=== PATIENT | female | born 1935 | race African-American/Black ===

== ENCOUNTER 2018-08-20 10:17 | Inpatient (IN) | payer OTHER, MEDICARE ==
[2018-08-20] MEDS ORDERED: ONDANSETRON 4 MG/2 ML VIAL IVPB ONE (11:20)
[2018-08-20] MEDS ORDERED: ONDANSETRON 4 MG/2 ML VIAL ONE (11:25)
--- NOTE | 2018-08-20 11:26 | PDOC ---
Attending Attestation - Resident Resident Name: Oumou Talbot - ED Attending Attestation I have performed the following: I have examined & evaluated the patient, The case was reviewed & discussed with the resident, I agree w/resident's findings & plan, Exceptions are as noted - HPI HPI: 08/20/18 11:21 83 F with h/o HTN, multiple abdominal surgeries (hysterectomy, partial colectomy s/p colostomy), SBOs, presenting with abdominal distention, pain, and nausea. Pt states that her symptoms started this morning. She noticed her abdomen becoming very bloated. Pt endorses nausea and having the urge to vomit but has not vomited. States that the pain comes in waves and is very severe, causing her to be SOB when it occurs. Pt states that her stool output from her colostomy has been less than normal. She states she has had prior obstructions in the past and gave herself an enema this morning in an attempt to clear it out. Denies F/C. Denies CP/SOB currently. - Physicial Exam PE: 08/20/18 11:25 "GENERAL: Awake, alert, and fully oriented, in no acute distress. HEAD: No signs of trauma EYES: PERRLA, EOMI, sclera anicteric, conjunctiva clear ENT: Auricles normal inspection, hearing grossly normal, nares patent, oropharynx clear without exudates. Moist mucosa NECK: Nontender, no stepoffs, Normal ROM, supple, no lymphadenopathy, JVD, or masses LUNGS: Breath sounds equal, clear to auscultation bilaterally. No wheezes, and no crackles HEART: Regular rate and rhythm, normal S1 and S2, no murmurs, rubs or gallops ABDOMEN: + abdominal distention and tympany, colostomy in place with scant stool in bag, diffuse TTP EXTREMITIES: Normal range of motion, no edema. No clubbing or cyanosis. No cords, erythema, or tenderness NEUROLOGICAL: Cranial nerves II through XII intact. 5/5 strength and sensation in all extremities, Normal speech, normal gait, normal cerebellar function SKIN: Warm, Dry, normal turgor, no rashes or lesions noted. - Medical Decision Making 08/20/18 11:25 83 F with multiple abdominal surgeries presenting with abdominal pain, distention, nausea. Likely SBO. - Labs - CTAP - Zofran 08/20/18 14:47 Labs wnl CTAP shows high grade partial SBO Will consult surgery
--- NOTE | 2018-08-20 11:44 | PDOC ---
History of Present Illness - General Chief Complaint: Pain Stated Complaint: ABD PAIN Time Seen by Provider: 08/20/18 11:09 - History of Present Illness Initial Comments: 83yo F with PMH of colostomy, HTN, CHF, Asthma presenting with abdominal pain starting this morning. Patient states she feels "blocked" as the usual contents are not draining from her colostomy. Patient complains of nausea, but she has not been able to vomit anything up though she wants to. She endorses intermittent abdominal pain in a bandlike distribution across the epigastrium. Previous abdominal surgeries include hysterectomy, colectomy in 2004, and revision. Patient has felt "blocked" before, but it was managed medically without surgery. Per chart review, she had a partial SBO in 2014 at this hospital. No urinary symptoms. Last ate some ham this morning. Denies fevers, but endorses chills. PCP: Dr. Sarmiento Colorectal Surgeon: Dr. Angulo (not at this hospital) Past History - Past Medical History Allergies/Adverse Reactions: Allergies Allergy/AdvReac Type Severity Reaction Status Date / Time No Known Allergies Allergy Verified 08/20/18 10:47 Home Medications: Ambulatory Orders Aspirin [ASA -] 81 mg PO DAILY 12/27/11 Hctz 25Mg/Triamterene [Dyazide 25/37.5 -] 1 cap PO DAILY 12/27/11 Metoprolol Tartrate [Lopressor -] 25 mg PO BID 12/27/11 Potassium Chloride 10 meq PO BID 12/27/11 Mag Hydrox/Al Hydrox/Simeth [MAALOX *SUSPENSION* -] 30 ml PO Q6H PRN #0 oral.susp 12/29/11 Asthma: Yes CHF: Yes Diabetes: No GI Disorders: Yes (CROHNS DISEASE) HTN: Yes Hypercholesterolemia: Yes - Surgical History Abdominal Surgery: Yes (COLOSTOMY BA) - Suicide/Smoking/Psychosocial Hx Smoking Status: No Smoking History: Unknown if ever smoked Number of Cigarettes Smoked Daily: 0 Hx Alcohol Use: No Drug/Substance Use Hx: No Substance Use Type: None Hx Substance Use Treatment: No Review of Systems - Review of Systems Comments:: Constitutional: no fever, +chills HEENT: no throat pain, no dysphagia Cardiovascular: no chest pain, no palpitations Respiratory: no cough, no shortness of breath Gastrointestinal: +abdominal pain, +nausea Genitourinary: no dysuria, no frequency Musculoskeletal: no myalgia, no arthralgia Skin: no rash, no itching Neurologic: no headache, no weakness *Physical Exam - Vital Signs Last Vital Signs Temp Pulse Resp BP Pulse Ox 97.6 F 62 16 161/83 100 08/20/18 10:20 08/20/18 10:20 08/20/18 10:20 08/20/18 10:20 08/20/18 10:20 - Physical Exam Comments: General: Awake, alert, and fully oriented, in no acute distress Head: No signs of trauma Eyes: EOMI, sclera anicteric ENT: Moist mucus membranes Neck: Normal ROM, supple Lungs: Lungs clear, Normal breath sounds Cardio: Regular rhythm, S1 and S2 present Abdomen: Distended, significant hernias present. Tender to palpation overlying epigastrium, RUQ, LUQ. No guarding, no rebound. Extremities: Normal range of motion, Distal pulses present SKIN: Warm, Dry, normal turgor Neurologic: Cranial nerves II through XII grossly intact. Normal speech ED Treatment Course - LABORATORY CBC & Chemistry Diagram: 08/20/18 11:30 08/20/18 11:40 Medical Decision Making - Medical Decision Making 83yo F with PMH of colostomy, HTN, CHF, Asthma presenting with abdominal pain. DDX including but not limited to SBO, pancreatitis, gastritis, gastroenteritis, ischemic bowel Patient declining pain medication or antiemetics High suspicion for SBO given patient's surgical history and prior partial SBO. Pain is not out of proportion to exam, so low suspicion for ischemic bowel. 08/20/18 11:44 Patient with concerns for contrast dye during imaging as she believes she has had an adverse reaction previously. 08/20/18 13:27 CBC WBC 8.0 K/mm3 (4.0-10.0) 08/20/18 11:30 RBC 5.16 M/mm3 (3.60-5.2) 08/20/18 11:30 Hgb 14.6 GM/dL (10.7-15.3) 08/20/18 11:30 Hct 44.1 % (32.4-45.2) 08/20/18 11:30 MCV 85.5 fl (80-96) 08/20/18 11:30 MCH 28.3 pg (25.7-33.7) 08/20/18 11:30 MCHC 33.1 g/dl (32.0-36.0) 08/20/18 11:30 RDW 15.0 % (11.6-15.6) 08/20/18 11:30 Plt Count 177 K/MM3 (134-434) 08/20/18 11:30 MPV 8.1 fl (7.5-11.1) 08/20/18 11:30 Absolute Neuts (auto) 5.9 K/mm3 (1.5-8.0) 08/20/18 11:30 Neutrophils % 73.6 % (42.8-82.8) 08/20/18 11:30 Lymphocytes % 17.9 % (8-40) 08/20/18 11:30 Monocytes % 6.8 % (3.8-10.2) 08/20/18 11:30 Eosinophils % 1.1 % (0-4.5) D 08/20/18 11:30 Basophils % 0.6 % (0-2.0) 08/20/18 11:30 Nucleated RBC % 0 % (0-0) 08/20/18 11:30 No anemia or leukocytosis CMP Sodium 138 mmol/L (136-145) 08/20/18 11:40 Potassium 4.6 mmol/L (3.5-5.1) 08/20/18 11:40 Chloride 100 mmol/L (98-107) 08/20/18 11:40 Carbon Dioxide 32 mmol/L (21-32) 08/20/18 11:40 Anion Gap 6 MMOL/L (8-16) L 08/20/18 11:40 BUN 13 mg/dL (7-18) 08/20/18 11:40 Creatinine 0.6 mg/dL (0.55-1.3) 08/20/18 11:40 Creat Clearance w eGFR 95.47 (>60) 08/20/18 11:40 Random Glucose 118 mg/dL (74-106) H 08/20/18 11:40 Lactic Acid 1.6 mmol/L (0.4-2.0) 08/20/18 11:30 Calcium 10.2 mg/dL (8.5-10.1) H 08/20/18 11:40 Total Bilirubin 0.6 mg/dL (0.2-1) 08/20/18 11:40 AST 43 U/L (15-37) H 08/20/18 11:40 ALT 33 U/L (13-61) 08/20/18 11:40 Alkaline Phosphatase 65 U/L (45-117) 08/20/18 11:40 Total Protein 8.4 g/dl (6.4-8.2) H 08/20/18 11:40 Albumin 4.1 g/dl (3.4-5.0) 08/20/18 11:40 Lipase 152 U/L (73-393) 08/20/18 11:40 Electrolytes unremarkable Lipase WNL Mildly elevated AST at 43 Son, Noah Mcpherson, can be reached at [phone] 08/20/18 14:18 CTAP: "The study is limited without the use of any contrast material. There are mild atelectatic changes at both lung bases. The heart is enlarged. The patient is S/ P left colon resection with a colostomy within the left lower quadrant and a Amador's pouch within the pelvis. Clinical correlation as to the nature of the surgical procedure is recommended. This finding was present on a previous exam of 12/27/2011. There are ventral hernias within both the right and left lower and anterior abdominal manzano. The left-sided hernia is related to the colostomy stoma. There are moderately distended fluid-filled loops of small bowel throughout the abdomen and pelvis consistent with a partial SBO. The etiology of the obstruction is uncertain and may be related to the hernia is. Air and stool is noted within a nondistended colon. A moderate degree of diverticulosis is also noted throughout the colon. The liver, spleen, pancreas, adrenal glands and kidneys demonstrate no significant abnormalities. Gallbladder is clear. There is no evidence of intra-abdominal or retroperitoneal lymphadenopathy or fluid collections. Examination of the pelvis demonstrates no evidence of pelvic masses, fluid collections or lymphadenopathy. The uterus has been removed. There is no evidence of acute bony pathology. IMPRESSION: 1. S/P left colon resection with left lower quadrant colostomy and Amador's pouch. 2. Large ventral hernia is within the right and left lower abdomen. 3. High-grade partial SBO. Clinical correlation and follow-up recommended. Please see above discussion. " Call to office of patient's colorectal surgeon, Dr. Angulo, He is not present at the office, but his surgical PA is available Notified TINA Caldwell of patient's high-grade partial SBO Will page on-call surgery team 08/20/18 15:02 Plan to administer pain medication. Plan to insert NG tube 08/20/18 15:[address] Barajas who agrees with plan for admission and NG tube placement. 4mg morphine ordered 08/20/18 15:27 Explained benefits/risks of NG tube placement and patient voiced understanding. Patient declined NG tube until she gets a room upstairs. 08/20/18 16:[address] Sarmiento who accepted patient for admission 08/20/18 16:22 Per Nurse Roberts, patient declined morphine. 08/20/18 16:40 Patient reports that her colostomy bag is full and she no longer feels "blocked " Abdomen appears less distended 08/20/18 18:35 *DC/Admit/Observation/Transfer Diagnosis at time of Disposition: SBO (small bowel obstruction) - Discharge Dispostion Condition at time of disposition: Guarded Decision to Admit order: Yes - Referrals - Patient Instructions - Post Discharge Activity
[2018-08-20 12:30] LABS: BASO % 0.6 % (0-2.0); EOS % 1.1 % (0-4.5); HEMATOCRIT 44.1 % (32.4-45.2); HEMOGLOBIN 14.6 GM/dL (10.7-15.3); LYMPH % 17.9 % (8-40); MCH 28.3 pg (25.7-33.7); MCHC 33.1 g/dl (32.0-36.0); MEAN CELL VOLUME 85.5 fl (80-96); MEAN PLT VOLUME 8.1 fl (7.5-11.1); MONO % 6.8 % (3.8-10.2); NEUT % 73.6 % (42.8-82.8); PLATELET COUNT 177 K/MM3 (134-434); RBC 5.16 M/mm3 (3.60-5.2)
--- NOTE | 2018-08-20 12:35 | EKG ---
Test Reason : Blood Pressure : / mmHG Vent. Rate : 059 BPM Atrial Rate : 059 BPM P-R Int : 164 ms QRS Dur : 088 ms QT Int : 380 ms P-R-T Axes : 042 -31 029 degrees QTc Int : 376 ms POOR DATA QUALITY, INTERPRETATION MAY BE ADVERSELY AFFECTED SINUS BRADYCARDIA WITH SINUS ARRHYTHMIA POSSIBLE LEFT ATRIAL ENLARGEMENT LEFT AXIS DEVIATION LEFT VENTRICULAR HYPERTROPHY NONSPECIFIC T WAVE ABNORMALITY T WAVE ABNORMALITY, CONSIDER ANTEROLATERAL ISCHEMIA ABNORMAL ECG Confirmed by MD EZIO, MARKEL ([id number]) on 08/20/2018 12:35:07 PM Referred By: Confirmed By:MARKEL HOLGUIN MD
[2018-08-20 12:51] LABS: INR 0.97 (0.83-1.09); PROTHROMBIN TIME (PATIENT) 11.5 SEC (9.7-13.0)
[2018-08-20 12:54] LABS: ACTIVATED PTT 23.1 SECONDS (25.2-36.5)
[2018-08-20 13:16] LABS: ALBUMIN 4.1 g/dl (3.4-5.0); ALK PHOS 65 U/L (45-117); ANION GAP 6 MMOL/L (8-16); BILIRUBIN,TOTAL 0.6 mg/dL (0.2-1); BLOOD UREA NITROGEN 13 mg/dL (7-18); CALCIUM 10.2 mg/dL (8.5-10.1); CHLORIDE 100 mmol/L (98-107); CO2 32 mmol/L (21-32); CREATININE 0.6 mg/dL (0.55-1.3); GLUCOSE,RANDOM 118 mg/dL (74-106); LIPASE 152 U/L (73-393); POTASSIUM 4.6 mmol/L (3.5-5.1); SGOT/AST 43 U/L (15-37); SGPT/ALT 33 U/L (13-61); SODIUM 138 mmol/L (136-145); TOT PROT 8.4 g/dl (6.4-8.2)
[2018-08-20] MEDS ORDERED: morphine CARPU-JECT 4 MG/1 ML DISP.SYRIN IVPUSH ONE (15:28)
[2018-08-20] MEDS ORDERED: SODIUM CHLORIDE 1,000 ML IV SCH (15:30)
[2018-08-20] MEDS ORDERED: morphine SULFATE 4 MG/ML VIAL ONE (16:16)
--- NOTE | 2018-08-20 16:45 | CONSULT ---
- Consultation REQUESTING PROVIDER: CONSULT REQUEST: We have been asked to surgically evaluate this patient for abdominal pain. PCP: HISTORY OF PRESENT ILLNESS: The patient is a 83 yo female who presented today for abd pain with nausea. The patient states that she gives herself an enema every Sunday. This Sunday she gave herself her usual enema and had a bowel movement. She had some abd pain and decided to do another enema yesterday morning and had a small BM. She continued to have crampy abd pain with nausea so she came to the ER for evaluation. Currently her pain is better and not having nausea. Her symptoms of nausea happen when she is having her abd pain. The patient wishes to wait for NGT insertion until she is admitted to a room. I was at the bedside with her and the ER physician when she asked to wait. IT was explained to her that it is feasible to have the tube placed while in the ER and awaiting admission. PMHx: CHF, lower ext varicosities PSHx: abdominal hysterectomy, exp lap with colosotomy Home Medications Medication Instructions Recorded Aspirin [ASA -] 81 mg PO DAILY 12/27/11 Hctz 25Mg/Triamterene [Dyazide 1 cap PO DAILY 12/27/11 25/37.5 -] Metoprolol Tartrate [Lopressor -] 25 mg PO BID 12/27/11 Potassium Chloride 10 meq PO BID 12/27/11 Mag Hydrox/Al Hydrox/Simeth 30 ml PO Q6H PRN #0 oral.susp 12/29/11 [MAALOX *SUSPENSION* -] Allergies Allergy/AdvReac Type Severity Reaction Status Date / Time No Known Allergies Allergy Verified 08/20/18 10:47 REVIEW OF SYSTEMS: CONSTITUTIONAL: Absent: fever, chills CARDIOVASCULAR: Present: pain radiating up from abd RESPIRATORY: Present: SOB when having abdominal pain NTESTINAL: Present: abdominal pain, abdominal distension, nausea, vomiting, constipation GENITOURINARY: Absent: dysuria, hematuria, flank pain MUSCULOSKELETAL: Present: knee pain HEMATOLOGIC/IMMUNOLOGIC: Absent: easy bleeding, easy bruising PHYSICAL EXAM: GENERAL: Awake, alert, and fully oriented, in no acute distress. LUNGS: Clear to auscultation bilat anteriorly. No wheezes, and no crackles. HEART: Regular rate and rhythm. ABDOMEN: Soft, nontender, large lower quadrant hernia with viable colostomy in the LLQ. Mild tenderness to RLQ. No erythema to skin. Ostomy viable, digital exam/ostomy appears to be open. No gross blood or stool with exam. LOWER EXTREMITIES: 2+ pulses, warm, well-perfused. No calf tenderness. No peripheral edema. 5/5 dorsi/plantar flexion. RLE varicosities > left PSYCH: Cooperative. Good eye contact. Appropriate mood and affect. Vital Signs Temperature 97.6 F 08/20/18 10:20 Pulse Rate 62 08/20/18 10:20 Respiratory Rate 16 08/20/18 10:20 Blood Pressure 161/83 08/20/18 10:20 O2 Sat by Pulse Oximetry (%) 97 08/20/18 12:00 Lab Results WBC 8.0 K/mm3 (4.0-10.0) 08/20/18 11:30 RBC 5.16 M/mm3 (3.60-5.2) 08/20/18 11:30 Hgb 14.6 GM/dL (10.7-15.3) 08/20/18 11:30 Hct 44.1 % (32.4-45.2) 08/20/18 11:30 MCV 85.5 fl (80-96) 08/20/18 11:30 MCHC 33.1 g/dl (32.0-36.0) 08/20/18 11:30 RDW 15.0 % (11.6-15.6) 08/20/18 11:30 Plt Count 177 K/MM3 (134-434) 08/20/18 11:30 Sodium 138 mmol/L (136-145) 08/20/18 11:40 Potassium 4.6 mmol/L (3.5-5.1) 08/20/18 11:40 Chloride 100 mmol/L (98-107) 08/20/18 11:40 Carbon Dioxide 32 mmol/L (21-32) 08/20/18 11:40 Anion Gap 6 MMOL/L (8-16) L 08/20/18 11:40 BUN 13 mg/dL (7-18) 08/20/18 11:40 Creatinine 0.6 mg/dL (0.55-1.3) 08/20/18 11:40 Random Glucose 118 mg/dL (74-106) H 08/20/18 11:40 Calcium 10.2 mg/dL (8.5-10.1) H 08/20/18 11:40 Blood Type A POSITIVE 08/20/18 11:30 Antibody Screen Negative 08/20/18 11:30 INR 0.97 (0.83-1.09) 08/20/18 11:30 Laboratory Tests 08/20/18 11:[address] scan: bilateral lower abdomen hernia with colostomy. PSBO Problem List - Problems (1) SBO (small bowel obstruction) Assessment/Plan: Pt D/w Dr. Barajas, recommend npo/iv hydration and NGT decompression. The risks and benefits were explained to her and she wishes to decline ngt placment until after admission. Pt with mild RLQ pain and no evidence of acute incarceration Surgery to follow the patient, Abd xray placed for the am. GI consult Code(s): K56.609 - UNSP INTESTNL OBST, UNSP TO PARTIAL VERSUS COMPLETE OBST
[2018-08-20 21:25] VITALS: BMI 28.8
[2018-08-20] MEDS ORDERED: D5-1/2NS+10 MEQ KCL - 10 MEQ/1,000 ML INFUS.BAG IV SCH (21:45)
[2018-08-21 06:48] LABS: ALBUMIN 3.1 g/dl (3.4-5.0); ALK PHOS 53 U/L (45-117); AMYLASE 37 U/L (25-115); ANION GAP 7 MMOL/L (8-16); BILIRUBIN,TOTAL 0.8 mg/dL (0.2-1); BLOOD UREA NITROGEN 9 mg/dL (7-18); CALCIUM 8.5 mg/dL (8.5-10.1); CHLORIDE 105 mmol/L (98-107); CO2 26 mmol/L (21-32); CREATININE 0.4 mg/dL (0.55-1.3); GLUCOSE,RANDOM 96 mg/dL (74-106); POTASSIUM 3.8 mmol/L (3.5-5.1); SGOT/AST 27 U/L (15-37); SGPT/ALT 24 U/L (13-61); SODIUM 138 mmol/L (136-145); TOT PROT 6.7 g/dl (6.4-8.2)
[2018-08-21 07:04] LABS: BASO % 0.2 % (0-2.0); EOS % 4.4 % (0-4.5); HEMATOCRIT 37.8 % (32.4-45.2); HEMOGLOBIN 12.4 GM/dL (10.7-15.3); LYMPH % 51.1 % (8-40); MCH 27.9 pg (25.7-33.7); MCHC 32.7 g/dl (32.0-36.0); MEAN CELL VOLUME 85.4 fl (80-96); MEAN PLT VOLUME 8.3 fl (7.5-11.1); MONO % 12.5 % (3.8-10.2); NEUT % 31.8 % (42.8-82.8); PLATELET COUNT 163 K/MM3 (134-434); RBC 4.43 M/mm3 (3.60-5.2); RDW 14.7 % (11.6-15.6); WHITE BLOOD COUNT 3.6 K/mm3 (4.0-10.0)
[2018-08-21] MEDS ORDERED: MAG HYDROX/AL HYDROX/SIMETH -MYLANTA- ORAL SUSPENSION PO PRN (07:42)
[2018-08-21] MEDS: POTASSIUM CHLORIDE TABS 10 MEQ TABLET.ER (FP) PO SCH ×2 (09:01→22:53)
[2018-08-21] MEDS: METOPROLOL TARTRATE 25 MG TABLET (FP) PO SCH ×2 (09:01→22:54)
[2018-08-21] MEDS: TRIAMTERENE AND HCTZ - 37.5 MG/25 MG CAPSULE PO SCH ×3 (09:01→15:13)
[2018-08-21] MEDS: ASPIRIN 81 MG CHEWABLE TABLETS PO SCH (09:01)
--- NOTE | 2018-08-21 09:36 | PN ---
Progress Note (short form) - Note Progress Note: 83yo F s/p colostomy with large ventral hernia, admitted for SBO. Pt state that she feels much better today, that pain is completely resolved. Pt denies n /v, fever, chills. Pt states that she is passing gas through her ostomy and cleaned stool out of it this morning. Pt states that she is hungry and wants to eat. Last Vital Signs Temp Pulse Resp BP Pulse Ox 98.1 F 71 18 161/85 96 08/21/18 06:00 08/21/18 06:00 08/21/18 06:00 08/21/18 06:00 08/20/18 19:30 CBC, BMP 08/21/18 05:30 08/21/18 05:30 PE: Gen; A&O x3 Resp: breathing comfortably Abd: soft, nondistended, nontender, large ventral hernia in lower abd. Colostomy shows gas in bag. Problem List - Problems (1) SBO (small bowel obstruction) Assessment/Plan: Plan -pt appears to have opened up, will start on clears -f/up abd xray -will adv as tolerated, pt is anxious to go home. Code(s): K56.609 - UNSP INTESTNL OBST, UNSP TO PARTIAL VERSUS COMPLETE OBST
--- NOTE | 2018-08-21 09:44 | HP ---
DATE OF ADMISSION: 08/20/2018 DATE OF DICTATION: 08/21/2018 HISTORY OF PRESENT ILLNESS: This is an 83-year-old female who had colon cancer, left colectomy done 14 years ago, with a colostomy bag, also known to have hypertension, who came to the emergency room yesterday with complaints of abdominal pain, constipation, and nausea for 2 days. In the ER, it was diagnosed that patient has partial small bowel obstruction. So, she got admitted. This morning, patient is doing better, and she had clear liquid diet, no vomiting, no nausea. She lives in her house. Her grownup son is sharing the house. MEDICATIONS: She is on blood pressure medications. ALLERGIES: No known allergies. SOCIAL HISTORY: She is not a smoker. PHYSICAL EXAMINATION: Vital signs: Blood pressure 160/80, pulse 70, respirations 20, temperature 98. HEENT: Unremarkable. Neck: Supple. No JVD. Lungs: Clear. Heart: S1, S2 normal. No S3, S4. Abdomen: Colostomy bag is working and intact, and abdominal distension present. Bowel sounds are normal. Extremities: Legs, no edema. Neurologic: Grossly normal. LABORATORY REPORTS: WBC when she came in it was 8, this morning 3.6, hemoglobin 12.4. Electrolytes are normal. Blood sugar is 152, amylase 37. Chest x-ray is negative. CT of the abdomen showed intestinal obstruction, small bowel obstruction. EKG normal sinus rhythm, poor quality, will repeat. FINAL DIAGNOSIS: Partial intestinal obstruction, hypertension. PLAN: Repeat flat plate abdomen, advance diet. Will follow. Bessie [id number]
--- NOTE | 2018-08-21 10:23 | EKG ---
Test Reason : Blood Pressure : / mmHG Vent. Rate : 052 BPM Atrial Rate : 052 BPM P-R Int : 168 ms QRS Dur : 090 ms QT Int : 428 ms P-R-T Axes : 047 -03 025 degrees QTc Int : 398 ms SINUS BRADYCARDIA WITH PREMATURE ATRIAL COMPLEXES POSSIBLE LEFT ATRIAL ENLARGEMENT LEFT VENTRICULAR HYPERTROPHY ABNORMAL ECG WHEN COMPARED WITH ECG OF 20-AUG-2018 11:56, PREMATURE ATRIAL COMPLEXES ARE NOW PRESENT NONSPECIFIC T WAVE ABNORMALITY, IMPROVED IN LATERAL LEADS Confirmed by JUNIOR LANG MD ([id number]) on 08/21/2018 10:23:15 AM Referred By: Nisha DURHAM Confirmed By:JUNIOR LANG MD
[2018-08-21] MEDS: POLYETHYLENE GLYCOL 3350 119 GM BTL PO SCH (11:46)
[2018-08-22 06:11] VITALS: BP 141/79; PULSE 59; TEMP 97.7
[2018-08-22] MEDS ORDERED: PT OWN MED DRAWER 7, Y5N ONE (09:00)
--- NOTE | 2018-08-22 09:42 | PN ---
Progress Note (short form) - Note Progress Note: Pt seen. Colostomy functioning. Reports significant improvement in abdominal pain/sxs. Diet advanced. Rn aware, will f/u later this afternoon. D/w attending Dr Barajas
[2018-08-22] MEDS: ASPIRIN 81 MG CHEWABLE TABLETS PO SCH (09:56)
[2018-08-22] MEDS: METOPROLOL TARTRATE 25 MG TABLET (FP) PO SCH (09:56)
[2018-08-22] MEDS: TRIAMTERENE AND HCTZ - 37.5 MG/25 MG CAPSULE PO SCH (09:56)
[2018-08-22] MEDS: POTASSIUM CHLORIDE TABS 10 MEQ TABLET.ER (FP) PO SCH (09:56)
--- NOTE | 2018-08-22 09:57 | DS ---
Physical Examination Vital Signs: Vital Signs Temperature 97.7 F 08/22/18 06:00 Pulse Rate 59 L 08/22/18 06:00 Respiratory Rate 18 08/22/18 06:00 Blood Pressure 141/79 08/22/18 06:00 O2 Sat by Pulse Oximetry (%) 100 08/21/18 21:00 Findings/Remarks: Admitted with partial SB obstruction Patient has no complaints,food well tolerated Abdominal Xry still has some obstruction Constitutional: Yes: No Distress Eyes: Yes: WNL HENT: Yes: WNL Neck: Yes: WNL Cardiovascular: Yes: WNL Respiratory: Yes: WNL Gastrointestinal: Yes: Soft ...Rectal Exam: Yes: Deferred Renal/: Yes: WNL Breast(s): Yes: WNL Musculoskeletal: Yes: WNL Extremities: Yes: WNL Neurological: Yes: Alert ...Motor Strength: WNL Psychiatric: Yes: Alert Labs: CBC, BMP 08/21/18 05:30 08/21/18 05:30 Discharge Summary Reason For Visit: SMALL BOWEL OBSTRUCTION Current Active Problems SBO (small bowel obstruction) (Acute) Condition: Guarded - Instructions - Home Medications Comprehensive Discharge Medication List: Ambulatory Orders Aspirin [ASA -] 81 mg PO DAILY 12/27/11 Hctz 25Mg/Triamterene [Dyazide 25/37.5 -] 1 cap PO DAILY 12/27/11 Metoprolol Tartrate [Lopressor -] 25 mg PO BID 12/27/11 Potassium Chloride 10 meq PO BID 12/27/11 Mag Hydrox/Al Hydrox/Simeth [MAALOX *SUSPENSION* -] 30 ml PO Q6H PRN #0 oral.susp 12/29/11
[2018-08-22] MEDS: POLYETHYLENE GLYCOL 3350 119 GM BTL PO SCH (12:28)
== END 2018-08-22 12:47 | disposition home health service (06) | DRG 389 ==
LOC: JER 10:17 → JERBED 15:31 → J7W 18:31
PROVIDERS: ADMIT Internal Medicine; ATTEND Internal Medicine
DX: K56.600 Partial intestinal obstruction, unspecified as to cause (principal); K50.90 Crohn's disease, unspecified, without complications; J45.909 Unspecified asthma, uncomplicated; I11.0 Hypertensive heart disease with heart failure; E78.00 Pure hypercholesterolemia, unspecified; K43.9 Ventral hernia without obstruction or gangrene; Z93.3 Colostomy status
CPT/HCPCS: 36415; 71045-TC-FY; 74019-TC-FY; 74176-TC; 80053; 82150; 82550; 82553; 83605; 83690; 84484; 85025; 85610; 85730; 86850; 86900; 86901; 93005; 93010; 99282-25; J7030

== ENCOUNTER 2024-06-20 09:10 | Inpatient (IN) | payer OTHER, MEDICARE ==
[2024-06-20] MEDS ORDERED: FAMOTIDINE 20 MG/50 ML IVPB 20 MG/50 ML MG IVPB ONE (10:34)
[2024-06-20] MEDS: FAMOTIDINE 20 MG/50 ML IVPB 20 MG/50 ML MG IVPB ONE (10:45)
[2024-06-20] MEDS: SODIUM CHLORIDE 0.9% 500 ML INFUS.BAG IV ONE (10:45)
[2024-06-20 11:01] LABS: ACTIVATED PTT 28.1 SECONDS (25.2-36.5); INR 0.96 (0.83-1.09); PROTHROMBIN TIME (PATIENT) 10.5 SEC (9.7-13.0)
[2024-06-20 11:07] LABS: POTASSIUM 5.6 mmol/L (3.5-5.1)
[2024-06-20 11:09] LABS: CALCIUM 10.4 mg/dL (8.5-10.1)
[2024-06-20 11:10] LABS: ALBUMIN 4.3 g/dl (3.4-5.0); BLOOD UREA NITROGEN 12.6 mg/dL (7-18); MAGNESIUM 2.2 mg/dL (1.8-2.4)
[2024-06-20 11:13] LABS: CREATININE 0.8 mg/dL (0.55-1.3)
[2024-06-20 11:14] LABS: BILIRUBIN,TOTAL 0.9 mg/dL (0.2-1); TOT PROT 9.3 g/dl (6.4-8.2)
[2024-06-20] MEDS ORDERED: ONDANSETRON 4 MG/2 ML VIAL ONE (11:26)
[2024-06-20 11:28] LABS: LACTIC ACID 3.5 mmol/L (0.4-2.0)
[2024-06-20] MEDS: ONDANSETRON 4 MG/2 ML VIAL IVPB ONE (11:45)
[2024-06-20 11:50] LABS: BASO % 0.1 % (0-2.0); EOS % 0.1 % (0-4.5); HEMATOCRIT 43.4 % (32.4-45.2); HEMOGLOBIN 14.4 GM/dL (10.7-15.3); LYMPH % 8.8 % (8-40); MCH 27.4 pg (25.7-33.7); MCHC 33.2 g/dl (32.0-36.0); MEAN CELL VOLUME 82.5 fl (80-96); MEAN PLT VOLUME 7.7 fl (7.5-11.1); MONO % 5.1 % (3.8-10.2); NEUT % 85.9 % (42.8-82.8); PLATELET COUNT 211 10^3/uL (134-434); RBC 5.26 M/mm3 (3.60-5.2); RDW 14.7 % (11.6-15.6); WHITE BLOOD COUNT 8.4 K/mm3 (4.0-10.0)
[2024-06-20] MEDS ORDERED: ONDANSETRON 4 MG/2 ML VIAL IVPUSH PRN (16:17)
[2024-06-20 17:06] LABS: BLOOD UREA NITROGEN 12.8 mg/dL (7-18)
[2024-06-20 17:09] LABS: CREATININE 0.6 mg/dL (0.55-1.3)
[2024-06-20 17:15] LABS: CALCIUM 8.7 mg/dL (8.5-10.1)
[2024-06-20] MEDS: LIDOCAINE VISCOUS 2% ORAL/TOP 15 ML UNIT-DOSE CUP MM ONE (18:00)
[2024-06-20] MEDS: LACTATED RINGERS SOLUTION 1,000 ML IV SCH (18:01)
[2024-06-20 18:30] VITALS: BMI 27.9
[2024-06-20] MEDS: amLODIPine BESYLATE 5 MG TABLET (FP) PO SCH (21:29)
[2024-06-21] MEDS: ENOXAPARIN NA (PORCINE) 40 MG/0.4 ML DISP.SYRIN SQ SCH (09:44)
[2024-06-21 10:00] LABS: BASO % 0.3 % (0-2.0); EOS % 2.4 % (0-4.5); HEMATOCRIT 33.8 % (32.4-45.2); HEMOGLOBIN 11.3 GM/dL (10.7-15.3); LYMPH % 33.9 % (8-40); MCH 27.6 pg (25.7-33.7); MCHC 33.4 g/dl (32.0-36.0); MEAN CELL VOLUME 82.5 fl (80-96); MEAN PLT VOLUME 8.1 fl (7.5-11.1); MONO % 11.9 % (3.8-10.2); NEUT % 51.5 % (42.8-82.8); PLATELET COUNT 157 10^3/uL (134-434); RDW 14.7 % (11.6-15.6); WHITE BLOOD COUNT 5.8 K/mm3 (4.0-10.0)
[2024-06-21 10:23] LABS: POTASSIUM 3.7 mmol/L (3.5-5.1)
[2024-06-21 10:27] LABS: BLOOD UREA NITROGEN 8.4 mg/dL (7-18); CALCIUM 8.3 mg/dL (8.5-10.1)
[2024-06-21 10:30] LABS: CREATININE 0.5 mg/dL (0.55-1.3); PHOSPHOROUS 2.8 mg/dL (2.5-4.9)
[2024-06-21 10:48] LABS: ALBUMIN 2.8 g/dl (3.4-5.0); BILIRUBIN,TOTAL 1.1 mg/dL (0.2-1); TOT PROT 5.7 g/dl (6.4-8.2)
[2024-06-22 10:13] LABS: BASO % 0.4 % (0-2.0); EOS % 2.3 % (0-4.5); HEMOGLOBIN 11.8 GM/dL (10.7-15.3); LYMPH % 22.1 % (8-40); MCH 26.8 pg (25.7-33.7); MCHC 31.9 g/dl (32.0-36.0); MEAN CELL VOLUME 84.2 fl (80-96); MEAN PLT VOLUME 8.1 fl (7.5-11.1); MONO % 12.7 % (3.8-10.2); NEUT % 62.5 % (42.8-82.8); PLATELET COUNT 172 10^3/uL (134-434); RBC 4.39 M/mm3 (3.60-5.2); RDW 14.2 % (11.6-15.6); WHITE BLOOD COUNT 4.2 K/mm3 (4.0-10.0)
[2024-06-22 10:23] LABS: POTASSIUM 3.6 mmol/L (3.5-5.1)
[2024-06-22 10:26] LABS: BLOOD UREA NITROGEN 6.9 mg/dL (7-18); CALCIUM 8.6 mg/dL (8.5-10.1)
[2024-06-22 10:29] LABS: CREATININE 0.4 mg/dL (0.55-1.3)
[2024-06-22] MEDS: DEXTROSE 5%-NORMAL SALINE 1,000 ML IV SCH (11:17)
[2024-06-22] MEDS: MINERAL OIL 30 ML UNIT-DOSE CUP PO SCH (16:27)
[2024-06-22] MEDS: METOPROLOL TARTRATE 25 MG TABLET (FP) PO SCH (21:10)
[2024-06-23 11:18] LABS: CALCIUM 8.9 mg/dL (8.5-10.1); POTASSIUM 3.5 mmol/L (3.5-5.1)
[2024-06-23 11:19] LABS: ALBUMIN 3.3 g/dl (3.4-5.0); MAGNESIUM 1.9 mg/dL (1.8-2.4)
[2024-06-23 11:22] LABS: CREATININE 0.4 mg/dL (0.55-1.3)
[2024-06-23 11:23] LABS: BILIRUBIN,TOTAL 0.6 mg/dL (0.2-1); TOT PROT 6.9 g/dl (6.4-8.2)
[2024-06-23] MEDS: ROSUVASTATIN CA 5 MG TABLET PO SCH (21:27)
[2024-06-23] MEDS: DOCUSATE SODIUM 100 MG CAPSULE (FP) PO SCH (21:27)
[2024-06-24 06:28] VITALS: RESP 18
[2024-06-24 09:17] LABS: HEMATOCRIT 40.5 % (32.4-45.2); MCHC 32.1 g/dl (32.0-36.0); MEAN PLT VOLUME 8.3 fl (7.5-11.1); PLATELET COUNT 193 10^3/uL (134-434); RBC 4.82 M/mm3 (3.60-5.2); WHITE BLOOD COUNT 5.6 K/mm3 (4.0-10.0)
[2024-06-24 09:39] LABS: POTASSIUM 3.5 mmol/L (3.5-5.1)
[2024-06-24 09:44] LABS: BLOOD UREA NITROGEN 3.6 mg/dL (7-18); CALCIUM 9.3 mg/dL (8.5-10.1); MAGNESIUM 1.8 mg/dL (1.8-2.4)
[2024-06-24 09:48] LABS: CREATININE 0.5 mg/dL (0.55-1.3); PHOSPHOROUS 3.2 mg/dL (2.5-4.9)
[2024-06-24] MEDS: POTASSIUM CHLORIDE TABS 20 MEQ TABLET.ER (FP) PO SCH (09:56)
[2024-06-24] MEDS: POLYETHYLENE GLYCOL (HEALTHYLAX) 3350 17 GM PACKET PO SCH (09:58)
[2024-06-24 12:07] VITALS: BP 126/79; PULSE 97; TEMP 97.3
== END 2024-06-24 14:16 | disposition home or self-care (01) | DRG 390 ==
LOC: JER 09:10 → UNDOADMOB 15:37 → JERBED 15:37 → INTOOBSV 15:37 → JERBED 15:48 → J5S 17:11 → OBSVTOIN 18:39
PROVIDERS: ADMIT Internal Medicine
DX: K56.609 Unspecified intestinal obstruction, unspecified as to partial versus complete obstruction (principal); K43.9 Ventral hernia without obstruction or gangrene; I11.0 Hypertensive heart disease with heart failure; I50.9 Heart failure, unspecified; Z93.9 Artificial opening status, unspecified
CPT/HCPCS: 36415; 74018-TC-FY; 74176-TC; 80048; 80053; 83605; 83690; 83735; 84100; 84484; 85025; 85027; 85610; 85730; 86850; 86900; 86901; 93005; 93010; 99285-25; G0378